=== PATIENT | female | born 1965 | race Caucasian/White ===

== ENCOUNTER → 2016-03-30 | Outpatient (CLI) | payer BC ==
--- NOTE | 2016-03-31 07:31 | MAMMOGRAPHY REPORT ---
BILATERAL DIGITAL SCREENING MAMMOGRAM WITH CAD: 03/30/2016 CLINICAL HISTORY: Routine screening. Patient has no complaints. TECHNIQUE: Current study was also evaluated with a Computer Aided Detection (CAD) system. Bilatera l CC and MLO views were obtained. COMPARISON: Comparison is made to exams dated: 09/23/2014 mammogram, 05/16/2012 mammogram, 05/10/2011 mammogram, and 06/01/2009 mammogram - [facility]. BREAST COMPOSITION: The tissue of both breasts is heterogeneously dense, which may obscure small ma sses. FINDINGS: No suspicious masses, calcifications, or areas of architectural distortion are noted in e ither breast. There has been no significant interval change compared to prior exams. Bilateral asym metries are stable compared to prior exams. IMPRESSION: ACR BI-RADS CATEGORY 2: BENIGN There is no mammographic evidence of malignancy. A 1 year screening mammogram is recommended. The p atient will receive written notification of the results. Approximately 10% of breast cancers are not detected with mammography. A negative mammographic repor t should not delay biopsy if a clinically suggestive mass is present. Johanna Brandon M.D. ah/:03/30/2016 15:20:31 Assembly Machine Feeder: Ayaka CHARLES(Rocio)(M), [facility] letter sent: Normal 1/2 BI-RADS Code: ACR BI-RADS Category 2: Benign
== END | disposition home or self-care (01) ==
LOC: C.MAMM 10:36
PROVIDERS: ATTEND Plastic Surgery
DX: Z12.31 Encounter for screening mammogram for malignant neoplasm of breast (principal)

== ENCOUNTER → 2017-04-05 | Outpatient (CLI) | payer BC ==
--- NOTE | 2017-04-06 15:25 | MAMMOGRAPHY REPORT ---
BILATERAL DIGITAL SCREENING MAMMOGRAM TOMOSYNTHESIS WITH CAD: 04/05/2017 CLINICAL HISTORY: Routine screening. Patient has no complaints. TECHNIQUE: Breast tomosynthesis in addition to standard 2D mammography was performed. Current study was also evaluated with a Computer Aided Detection (CAD) system. COMPARISON: Comparison is made to exams dated: 03/30/2016 mammogram, 09/23/2014 mammogram, 05/16/2012 ma mmogram, 05/10/2011 mammogram, 06/01/2009 mammogram - [facility], and 05/07/2007. BREAST COMPOSITION: The tissue of both breasts is heterogeneously dense, which may obscure small mas ses. FINDINGS: There are new post surgical changes from bilateral reduction mammoplasty. There is a new c luster of coarse calcifications in the right upper outer quadrant, for which spot magnification views are recommended for further evaluation. The calcifications are shown to be in association with an o kaylie circumscribed fat density 7 mm mass on the tomosynthesis images which is consistent with an oil c yst from fat necrosis, suggesting that these calcifications may represent dystrophic calcifications r elated to interval reduction mammoplasty. Another new cluster of calcifications is seen within the r ight lower inner quadrant, for which spot magnification views are recommended. The remainder of both breasts demonstrate no suspicious masses, calcifications, or areas of nonsurgic al architectural distortion. IMPRESSION: ACR BI-RADS CATEGORY 0: INCOMPLETE EVALUATION: NEED ADDITIONAL IMAGING EVALUATION Right breast calcifications, for which additional imaging evaluation is recommended. The patient angelo l be called to schedule an appointment. Approximately 10% of breast cancers are not detected with mammography. A negative mammographic report should not delay biopsy if a clinically suggestive mass is present. Johanna Brandon M.D. ah/:04/05/2017 14:41:40 Electronics Technician Apprentice: Gabby Garcia RT(R)(M), [facility] letter sent: Addl Imaging 0 BI-RADS Code: ACR BI-RADS Category 0: Incomplete Evaluation: Need Additional Imaging Evaluation
== END | disposition home or self-care (01) ==
LOC: C.MAMM 12:39
PROVIDERS: ATTEND Plastic Surgery
DX: Z12.31 Encounter for screening mammogram for malignant neoplasm of breast (principal); R92.1 Mammographic calcification found on diagnostic imaging of breast

== ENCOUNTER → 2017-04-18 | Outpatient (CLI) | payer BC ==
--- NOTE | 2017-04-18 15:14 | MAMMOGRAPHY REPORT ---
UNILATERAL RIGHT DIGITAL DIAGNOSTIC MAMMOGRAM: 04/18/2017 CLINICAL HISTORY: 51-year-old woman called back from screening for new groupings of calcifications in the medial and lateral right breast. Interval reduction mammoplasty performed April 2016. TECHNIQUE: Spot magnification right CC and ML views were obtained. COMPARISON: Comparison is made to exams dated: 04/05/2017 mammogram, 03/30/2016 mammogram, 09/23/2014 hugo mogram, 05/16/2012 mammogram, 05/10/2011 mammogram, and 06/01/2009 mammogram - [facility]. BREAST COMPOSITION: There are scattered areas of fibroglandular density in the right breast. FINDINGS: There are thin rimmed lucent centered oil cysts in the upper outer middle one third of the right breast near the first grouping of reticular calcifications, which measure 6 mm. This suggests the calcifications represent benign fat necrosis and are due to recent surgery. The second grouping of coarse heterogeneous calcifications is located in the lower inner posterior right breast, measurin g 2.6 mm, also likely representing benign fat necrosis. There is an oval circumscribed low-density 6 mm mass in the lower inner posterior right breast which likely represents an additional noncalcified area of benign fat necrosis. However, given that these findings are new comparing to prior exams, a short interval follow-up right diagnostic tomosynthesis mammogram according spot magnification views is recommended to ensure stability in 6 months. IMPRESSION: ACR-BI-RADS CATEGORY 3: PROBABLY BENIGN The 2 new groupings of reticular and coarse heterogeneous calcifications in the upper outer and lower inner right breast as well as low-density oval circumscribed 6 mm mass in the lower inner right leta st most likely represent benign fat necrosis, due to interval reduction mammoplasty. However, a shor t interval follow-up right diagnostic tomosynthesis mammogram including spot magnification views is r ecommended to ensure stability in 6 months. These results and recommendations were discussed with the patient at the time of the exam. Approximately 10% of breast cancers are not detected with mammography. A negative mammographic report should not delay biopsy if a clinically suggestive mass is present. Yusra Geiger M.D. ay/:04/18/2017 11:50:47 Thermoplastic Technician: Amaya CHARLES(Rocio)(Jose), [facility] letter sent: Follow Up Recommended 3 BI-RADS Code: ACR-BI-RADS Category 3: Probably Benign
== END | disposition home or self-care (01) ==
LOC: C.MAMM 10:58
PROVIDERS: ATTEND Plastic Surgery
DX: R92.1 Mammographic calcification found on diagnostic imaging of breast (principal); N63.14 Unspecified lump in the right breast, lower inner quadrant